=== PATIENT | male | born 1950 | race Caucasian/White ===

== ENCOUNTER → 2017-02-22 | Outpatient (CLI) | payer MEDICARE ==
[~2017-02-22] MED LIST: ASPI-621 PO; DOCU-30 PO; FURO-92 PO; HYDR-3307 PO; LISI-170 PO; MAGN400T36 PO; MULT-516 PO; OMEG300C PO; POTA20PA8 PO; WARF5TAB7 PO-COUM
== END | disposition home or self-care (01) ==
LOC: CFH 09:54
PROVIDERS: ATTEND Internal Medicine Cardiovascular Disease
DX: I10 Essential (primary) hypertension (principal); I51.7 Cardiomegaly; I37.1 Nonrheumatic pulmonary valve insufficiency; Z95.2 Presence of prosthetic heart valve
CPT/HCPCS: 93306